=== PATIENT | female | born 1940 | race Caucasian/White ===

== ENCOUNTER 2017-09-21 02:15 | Emergency (ER) | payer OTHER, MEDICARE ==
[~2017-09-21] VITALS: Ht 154.9 cm; Wt 72.6 kg
--- NOTE | 2017-09-21 02:25 | ED AMS/SEIZURE/WEAK/DIZZY ---
History of Present Illness General Chief Complaint: General Adult Stated Complaint: "WOKE UP HAD VERTIGO AND BEEN THROWING UP SINCE" Source: patient, family, old records Exam Limitations: no limitations Vital Signs & Intake/Output Vital Signs & Intake/Output Vital Signs Date Time Temp Pulse Resp B/P B/P Pulse O2 O2 Flow FiO2 Mean Ox Delivery Rate 09/21 0233 98 Room Air 09/21 0225 98.3 83 18 167/80 99 Room Air Allergies Coded Allergies: acetaminophen (From PERCOCET) (Intermediate, NAUSEA AND VOMITING 09/21/17) oxycodone (From PERCOCET) (Intermediate, NAUSEA AND VOMITING 09/21/17) Triage Nurses Notes Reviewed? yes HPI: Patient woke up to shut her windows and developed room spinning dizziness associated with nausea vomiting. Similar symptoms in the past when she has had vertigo. Patient denies any ringing in her ears. The symptoms worsen with movement of her head. She denies any headache or blurry vision. There are no fevers or chills. Past History Travel History Traveled to [place] past 21 day No Medical History Any Pertinent Medical History? see below for history Neurological: vertigo Cardiovascular: hypertension Endocrine: hypothyroidism Surgical History Surgical History: non-contributory Psychosocial History What is your primary language Lebanese Tobacco Use: Never used ETOH Use: denies use Illicit Drug Use: denies illicit drug use Family History Hx Contributory? No Review of Systems Review of Systems Constitutional: Reports: no symptoms. EENTM: Reports: no symptoms. Respiratory: Reports: no symptoms. Cardiovascular: Reports: no symptoms. GI: Reports: see HPI, nausea, vomiting. Genitourinary: Reports: no symptoms. Musculoskeletal: Reports: no symptoms. Skin: Reports: no symptoms. Neurological/Psychological: Reports: see HPI. Hematologic/Endocrine: Reports: no symptoms. Immunologic/Allergic: Reports: no symptoms. All Other Systems: Reviewed and Negative Physical Exam Physical Exam General Appearance: well developed/nourished, alert, awake, anxious, moderate distress Head: atraumatic Eyes: Bilateral: PERRL, EOMI, other (+ NYSTAGMUS). Ears, Nose, Throat: normal pharynx, normal ENT inspection Neck: normal inspection, supple, full range of motion Respiratory: normal breath sounds, chest non-tender, no respiratory distress, lungs clear Cardiovascular: regular rate/rhythm, normal peripheral pulses Gastrointestinal: normal bowel sounds, soft, non-tender, no organomegaly Back: normal inspection, normal range of motion Extremities: normal range of motion Neurologic/Psych: no motor/sensory deficits, awake, alert, oriented x 3, normal mood/affect Skin: intact, normal color, warm/dry Core Measures ACS in differential dx? No CVA/TIA Diagnosis No Sepsis Present: No Sepsis Focused Exam Completed? No Progress Differential Diagnosis: arrythmia, benign positional vertigo, drug intoxication, electrolyte imbalance, labrynthitis, Meniere's disease Plan of Care: Orders Procedure Date/time Status TROPONIN LEVEL 09/22 223 Complete COMPREHENSIVE METABOLIC PANEL 09/22 223 Complete CBC WITHOUT DIFFERENTIAL 09/22 223 Complete EKG 09/22 223 Active Laboratory Tests 09/21/17 0245: Anion Gap 10, Estimated GFR > 60, BUN/Creatinine Ratio 22.0, Glucose 120 H, Calcium 9.1, Total Bilirubin 0.3, AST 24, ALT 27, Alkaline Phosphatase 79, Troponin I < 0.01, Total Protein 6.5, Albumin 3.8, Globulin 2.7, Albumin/ Globulin Ratio 1.4, CBC w Diff NO MAN DIFF REQ, RBC 4.79, MCV 83.3, MCH 27.8, MCHC 33.4, RDW 13.5, MPV 8.4, Gran % 42.9, Lymphocytes % 42.9, Monocytes % 9.4 H, Eosinophils % 3.9, Basophils % 0.9, Absolute Granulocytes 1.3 L, Absolute Lymphocytes 1.3, Absolute Monocytes 0.3, Absolute Eosinophils 0.1, Absolute Basophils 0 Initial ED EKG: NSR, no ST T wave changes Prior EKG: unchanged Comments: Patient is feeling much better. Patient was able to ambulate in the emergency department without difficulty. Departure Departure Disposition: HOME OR SELF CARE Condition: Stable Clinical Impression Primary Impression: Vertigo Referrals: August SAMANO,Oliva Donald (PCP/Family) Additional Instructions: TAKE ZOFRAN NEEDED FOR NAUSEA TAKE ANTIVERT (MECLIZINE) NEEDED FOR DIZZINESS RETURN FOR ANY CONCERNS Departure Forms: Customer Survey General Discharge Information Prescriptions: Current Visit Scripts Ondansetron (Zofran Odt) 1 TAB SL TID PRN NAUSEA #10 TAB Meclizine HCl 1 TAB PO Q6P PRN DIZZINESS #30 TAB
[2017-09-21 03:14] LABS: ABSOLUTE BASOPHIL COUNT 0 /CUMM (0.0-0.2); ABSOLUTE EOSINOPHIL COUNT 0.1 /CUMM (0.0-0.7); ABSOLUTE GRANULOCYTE CT 1.3 /CUMM (1.4-6.5); ABSOLUTE LYMPH COUNT 1.3 /CUMM (1.2-3.4); ABSOLUTE MONOCYTE COUNT 0.3 /CUMM (0.10-0.60); BASOPHIL % 0.9 % (0.0-2.0); EOSINOPHIL % 3.9 % (0-5); GRANULOCYTE % 42.9 % (42.2-75.2); MEAN CORPUSCULAR HGB 27.8 PG (27.0-31.0); MEAN CORPUSCULAR HGB CONC 33.4 G/DL (33.0-37.0); MEAN CORPUSCULAR VOLUME 83.3 FL (81.0-99.0); MEAN PLATELET VOLUME 8.4 FL (7.4-10.4); PLATELET COUNT 261 /CUMM (130-400); RBC DISTRIBUTION WIDTH 13.5 % (11.5-14.5); RED BLOOD CELL CT 4.79 /CUMM (4.20-5.40); WHITE BLOOD CELL COUNT 3.1 /CUMM (4.8-10.8)
[2017-09-21] MEDS ORDERED: ZOFRAN ODT4 M1 SL (04:04)
[2017-09-21] MEDS ORDERED: MECLIZINE HCL25 MG PO (04:04)
[2017-09-21 05:10] VITALS: BP 137/65
== END 2017-09-21 05:13 ==
LOC: ERH 02:15
PROVIDERS: Emergency Medicine
DX: R42 Dizziness and giddiness (principal); R11.2 Nausea with vomiting, unspecified; I10 Essential (primary) hypertension; E03.9 Hypothyroidism, unspecified
CPT/HCPCS: 93005; 93010; 96374; J2405